=== PATIENT | female | born 1970 | race Caucasian/White ===

== ENCOUNTER 2016-08-02 03:35 | Inpatient (IN) | payer BC ==
[~2016-08-02] VITALS: Ht 165.1 cm; Wt 72.6 kg
[~2016-08-02 03:35] MED LIST: ACYC-113; ALBU18HF; DOXY100T PO; DULO30CA2 PO; FENT1PAT77 TD; FLUT1DIS; GABA300C10 PO; HCTZ 25 MG PO; HYDR-3144 PO; MONT10TA6; NAPR220C2; OXYC20TA42 PO; PRED50TA PO; SENN1TAB7 PO; TRAZ100T15
[2016-08-02] MEDS ORDERED: MAALOX/HYOSCYAMINE/LIDOCAINE 45 ML BOTTLE ONE (05:30)
[2016-08-02] MEDS ORDERED: MAALOX/HYOSCYAMINE/LIDOCAINE 45 ML BOTTLE PO ONE (05:30)
[2016-08-02 06:01] LABS: HEMOGLOBIN 11.8 g/dL (11.7-16.4)
[2016-08-02 06:14] LABS: DAU SCREEN DISCLAIMER
[2016-08-02 06:19] LABS: ASPARTATE AMINO TRANSFERASE 82 U/L (15-37); BLOOD UREA NITROGEN 27 mg/dL (7-18)
[2016-08-02] MEDS ORDERED: LORazepam 1MG TABLET ONE (06:22)
[2016-08-02] MEDS ORDERED: LORazepam 1MG TABLET PO ONE (06:30)
[2016-08-02] MEDS ORDERED: SODIUM CHLORIDE 0.9% 1,000ML IVBOLUS ONE (07:00)
[2016-08-02] MEDS ORDERED: SODIUM CHLORIDE FLUSH 10ML SYR IVF ONE (07:00)
[2016-08-02] MEDS ORDERED: LORazepam 2 MG/ML, 1ML IVPush ONE (07:00)
[2016-08-02] MEDS ORDERED: LORazepam 2 MG/ML, 1ML ONE (07:10)
[2016-08-02] MEDS ORDERED: ALBUTEROL/IPRATROPIUM 2.5MG/0.5MG, 3 ML NPPB ONE (08:00)
[2016-08-02] MEDS ORDERED: BISACODYL 10 MG SUPP PR PRN (09:30)
[2016-08-02] MEDS ORDERED: POLYETHYLENE GLYCOL 17 GM PACKET PO PRN (09:30)
[2016-08-02] MEDS ORDERED: ONDANSETRON ODT 4 MG PO PRN (09:30)
[2016-08-02] MEDS ORDERED: ONDANSETRON 2MG/ML, 2ML IVP PRN (09:30)
[2016-08-02] MEDS ORDERED: LABETALOL 5MG/ML, 20ML IV PRN (09:30)
[2016-08-02 10:20] VITALS: BP 128/81
[2016-08-02] MEDS: D5%-0.45NACL+KCL 20MEQ 1,000 ML IV SCH ×2 (10:50→19:21)
[2016-08-02] MEDS: ENOXAPARIN 40 MG/0.4 ML SQ SCH (10:50)
[2016-08-02] MEDS: DOXYCYCLINE 100MG TABLET PO SCH ×2 (10:51→20:49)
[2016-08-02] MEDS: predniSONE 50MG TABLET PO SCH (11:17)
[2016-08-02] MEDS ORDERED: ALBUTEROL SULFATE 2.5 MG/3 ML NPPB PRN (13:00)
[2016-08-02 13:10] VITALS: BP 124/57
[2016-08-02 19:34] VITALS: BP 117/77
[2016-08-02] MEDS: HYDROcodone/APAP 5/325 TABLET PO PRN (20:49)
[2016-08-03 01:35] VITALS: BP 116/78
[2016-08-03] MEDS: D5%-0.45NACL+KCL 20MEQ 1,000 ML IV SCH ×2 (03:24→11:40)
[2016-08-03] MEDS: HYDROcodone/APAP 5/325 TABLET PO PRN ×3 (05:42→18:34)
[2016-08-03 05:51] LABS: HEMOGLOBIN 11.2 g/dL (11.7-16.4)
[2016-08-03 06:05] LABS: ASPARTATE AMINO TRANSFERASE 56 U/L (15-37); BLOOD UREA NITROGEN 15 mg/dL (7-18)
[2016-08-03 07:09] VITALS: BP 128/82
[2016-08-03] MEDS: DOXYCYCLINE 100MG TABLET PO SCH ×2 (08:58→21:02)
[2016-08-03] MEDS: predniSONE 50MG TABLET PO SCH (08:58)
[2016-08-03] MEDS: SENNA/DOCUSATE TABLET PO SCH (08:58)
[2016-08-03] MEDS: ENOXAPARIN 40 MG/0.4 ML SQ SCH (08:59)
[2016-08-03] MEDS ORDERED: ALBUTEROL/IPRATROPIUM 2.5MG/0.5MG, 3 ML IPPB PRN (11:30)
[2016-08-03] MEDS: MONTELUKAST 10 MG TABLET PO SCH (11:41)
[2016-08-03] MEDS ORDERED: PRED10TA14 PO (11:55)
[2016-08-03] MEDS: HYDROCHLOROTHIAZIDE 12.5 MG CAPSULE PO SCH (12:31)
[2016-08-03 12:56] VITALS: BP 143/84
[2016-08-03] MEDS: GABAPENTIN 300 MG CAPSULE PO SCH ×2 (17:05→21:02)
[2016-08-03 19:52] VITALS: BP 137/88
[2016-08-04] MEDS: HYDROcodone/APAP 5/325 TABLET PO PRN ×3 (01:22→14:30)
[2016-08-04 04:51] VITALS: BP 147/86
[2016-08-04 04:55] LABS: ASPARTATE AMINO TRANSFERASE 38 U/L (15-37); BLOOD UREA NITROGEN 11 mg/dL (7-18)
[2016-08-04] MEDS: predniSONE 50MG TABLET PO SCH (08:41)
[2016-08-04] MEDS: MONTELUKAST 10 MG TABLET PO SCH (08:41)
[2016-08-04] MEDS: DOXYCYCLINE 100MG TABLET PO SCH (08:41)
[2016-08-04] MEDS: GABAPENTIN 300 MG CAPSULE PO SCH ×2 (08:42→17:26)
[2016-08-04] MEDS: ENOXAPARIN 40 MG/0.4 ML SQ SCH (08:42)
[2016-08-04] MEDS: HYDROCHLOROTHIAZIDE 12.5 MG CAPSULE PO SCH (08:42)
[2016-08-04] MEDS: SENNA/DOCUSATE TABLET PO SCH (08:44)
[2016-08-04 09:32] VITALS: BP 142/78
[2016-08-04] MEDS ORDERED: PRED50TA PO (16:23)
[2016-08-04 16:38] VITALS: BP 141/89
== END 2016-08-04 18:40 | disposition home or self-care (01) | DRG 682 ==
LOC: ED 05:18 → EDIP 08:41 → 4EST 10:01
PROVIDERS: ADMIT Internal Medicine; ATTEND Internal Medicine
PROC: 0T9B70Z Drainage of Bladder with Drainage Device, Via Natural or Artificial Opening (ICD-10-PCS; principal; 2016-08-02)
DX: N17.9 Acute kidney failure, unspecified (principal); J96.01 Acute respiratory failure with hypoxia; F23 Brief psychotic disorder; J45.901 Unspecified asthma with (acute) exacerbation; F32.9 Major depressive disorder, single episode, unspecified; K21.9 Gastro-esophageal reflux disease without esophagitis; I10 Essential (primary) hypertension; G62.9 Polyneuropathy, unspecified; E87.6 Hypokalemia; E78.5 Hyperlipidemia, unspecified; Z82.5 Family history of asthma and other chronic lower respiratory diseases; T38.0X5A Adverse effect of glucocorticoids and synthetic analogues, initial encounter; G89.29 Other chronic pain
CPT/HCPCS: 36415; 70450; 71020; 80053; 80307; 81001; 82140; 82607; 82746; 83690; 83735; 84439; 84443; 85025; 85610; 87086; 93005; 94640; 99285; J1650; J7613; J7620; J2060; J3480; J7512

== ENCOUNTER 2018-05-15 20:24 | Inpatient (IN) | payer OTHER ==
[~2018-05-15] VITALS: Ht 162.6 cm; Wt 61.1 kg
[~2018-05-15 20:24] MED LIST changes: -ALBU18HF; +ALBU18HF INH; -HYDR-3144 PO; +HYDR-3245 PO; -MONT10TA6; +MONT10TA6 PO; +PRED10TA14 PO; -SENN1TAB7 PO; +SENN1TAB8 PO; +TRAZ-137; -TRAZ100T15
--- NOTE | 2018-05-15 20:45 | NUR ---
assumed care of pt. pt here for epigastric pain x1 day. pt states that it is more comfortable to sit up. +tender to palpation. no urinary or bowel c/o. pt has has a total hysterectomy. pt reports vomiting [employer]. no vomiting at this time. non-productive cough and intermittent nausea. no family at bedsdie. PA at bedside for eval
[2018-05-15] MEDS ORDERED: BENA5TAB3 PO (20:58)
--- NOTE | 2018-05-15 21:05 | NUR ---
pt aware that urine sample needed. pt ambulated to BR
[2018-05-15] MEDS ORDERED: ONDANSETRON 2MG/ML, 2ML ONE (21:19)
[2018-05-15] MEDS ORDERED: HYDROmorphone 2 MG/ML, 1ML ONE ×2 (21:20→22:28)
[2018-05-15] MEDS: ONDANSETRON 2MG/ML, 2ML IVPush PRN (21:23)
[2018-05-15 21:29] LABS: BASOPHILS # (AUTO) 0.01 x10^3/uL (0-0.1); BASOPHILS % (AUTO) 0 % (0-1); EOSINOPHILS # (AUTO) 0.02 x10^3/uL (0-0.4); EOSINOPHILS % (AUTO) 0 % (1-7); LYMPHOCYTES # (AUTO) 0.92 x10^3/uL (1-3.4); LYMPHOCYTES % (AUTO) 6 % (22-44); MD NO; MEAN CORPUSCULAR HGB CONC 34.6 g/dL (32.4-35.8); MEAN CORPUSCULAR VOLUME 98.3 fL (80-100); MEAN PLATELET VOLUME 7.4 fL (7.4-10.4); MONOCYTES # (AUTO) 0.28 x10^3/uL (0.2-0.8); MONOCYTES % (AUTO) 2 % (2-9); NEUTROPHILS # (AUTO) 13.19 x10^3/uL (1.8-6.8); NEUTROPHILS % (AUTO) 92 % (42-75); PLATELET COUNT 267 x10^3/uL (130-400); RED BLOOD COUNT 5.03 x10^6/uL (3.82-5.3); RED CELL DISTRIBUTION WIDTH 12.9 % (9.6-15.2)
[2018-05-15] MEDS ORDERED: HYDROmorphone 1 MG/ML, 1ML IV ONE ×2 (21:30→22:30)
[2018-05-15] MEDS ORDERED: SODIUM CHLORIDE 0.9% 1,000ML IVBOLUS ONE ×2 (21:30→23:00)
[2018-05-15] MEDS ORDERED: DIPHENHYDRAMINE 50 MG/ML, 1ML IVPush ONE (21:30)
--- NOTE | 2018-05-15 21:30 | NUR ---
citlaly held at this time as pt became sleepy after dilaudid assessment and had a mild decrease of pusle ox. PA aware and agrees. pt advised prior to medication administration no to drive after dilaudid and pt verbalized understading.
--- NOTE | 2018-05-15 21:40 | NUR ---
pt in RAD
[2018-05-15 21:42] LABS: ALBUMIN 4.8 g/dL (3.4-5.0); ANION GAP 8 mmol/L (5-15); CALCIUM 9.5 mg/dL (8.5-10.1); CHLORIDE 98 mmol/L (98-107)
[2018-05-15 21:43] LABS: CULTURE INDICATED? YES; MICROSCOPIC INDICATED
[2018-05-15 21:46] LABS: ALANINE AMINOTRANSFERASE 237 U/L (12-78); ALKALINE PHOSPHATASE 96 U/L (45-117); BILIRUBIN,TOTAL 2.4 mg/dL (0.2-1.0); CREATININE 0.71 mg/dL (0.55-1.02); TOTAL PROTEIN 7.9 g/dL (6.4-8.2)
--- NOTE | 2018-05-15 22:11 | NUR ---
Dr Dodd has been to bedside for recheck. pt to be admitted
--- NOTE | 2018-05-15 22:19 | NUR ---
pt reports that pain was decreased after dilaudid until she had the US and now she is having more pain
[2018-05-15] MEDS ORDERED: CEFTRIAXONE PMX 1GM/50ML 50 ML ONE (22:28)
[2018-05-15] MEDS ORDERED: CEFTRIAXONE PMX 1GM/50ML 50 ML IV ONE (22:30)
--- NOTE | 2018-05-15 22:44 | NUR ---
pt medicated per order. oral swabs given for comfort
[2018-05-15] MEDS ORDERED: hydrALAzine 20 MG/ML, 1ML IVPush PRN (23:00)
[2018-05-15] MEDS ORDERED: ONDANSETRON 2MG/ML, 2ML IVPush PRN (23:00)
[2018-05-15] MEDS ORDERED: ACETAMINOPHEN 325 MG TABLET PO PRN (23:00)
--- NOTE | 2018-05-15 23:03 | NUR ---
report called to Marilee [facility]
--- NOTE | 2018-05-15 23:26 | NUR ---
pt reports some relief of pain after meds. PO ice chips given per MD COTTRELL. pt slightly hypoxic on RA after dilaudid, pt placed on 2L NC
--- NOTE | 2018-05-15 23:33 | NUR ---
pt to floor with transport. IV infusing on admit
[2018-05-15 23:42] VITALS: BP 145/97
[2018-05-16] MEDS: KETOROLAC 30 MG/1 ML IV PRN ×3 (00:06→21:58)
[2018-05-16] MEDS: ENOXAPARIN 40 MG/0.4 ML SQ SCH ×2 (00:06→21:58)
[2018-05-16] MEDS: LACTATED RINGERS 1,000 ML IV SCH ×3 (00:07→09:00)
[2018-05-16 01:02] VITALS: BP 152/78
[2018-05-16] MEDS: HYDROmorphone 2 MG/ML, 1ML IVPush PRN ×7 (01:55→23:03)
[2018-05-16 05:40] LABS: BASOPHILS # (AUTO) 0.01 x10^3/uL (0-0.1); BASOPHILS % (AUTO) 0 % (0-1); EOSINOPHILS # (AUTO) 0.02 x10^3/uL (0-0.4); EOSINOPHILS % (AUTO) 0 % (1-7); LYMPHOCYTES # (AUTO) 1.03 x10^3/uL (1-3.4); LYMPHOCYTES % (AUTO) 9 % (22-44); MD NO; MEAN CORPUSCULAR HEMOGLOBIN 34.4 pg (27.0-34.8); MEAN CORPUSCULAR HGB CONC 34.8 g/dL (32.4-35.8); MEAN CORPUSCULAR VOLUME 98.8 fL (80-100); MEAN PLATELET VOLUME 7.4 fL (7.4-10.4); MONOCYTES # (AUTO) 0.36 x10^3/uL (0.2-0.8); MONOCYTES % (AUTO) 3 % (2-9); NEUTROPHILS # (AUTO) 10.34 x10^3/uL (1.8-6.8); NEUTROPHILS % (AUTO) 88 % (42-75); PLATELET COUNT 202 x10^3/uL (130-400); RED BLOOD COUNT 4.42 x10^6/uL (3.82-5.3); RED CELL DISTRIBUTION WIDTH 13.4 % (9.6-15.2)
[2018-05-16 05:46] LABS: CHLORIDE 106 mmol/L (98-107)
[2018-05-16 06:00] LABS: ALANINE AMINOTRANSFERASE 161 U/L (12-78); ALBUMIN 3.8 g/dL (3.4-5.0); ALKALINE PHOSPHATASE 71 U/L (45-117); ANION GAP 9 mmol/L (5-15); BILIRUBIN,TOTAL 1.4 mg/dL (0.2-1.0); CALCIUM 8.6 mg/dL (8.5-10.1); CREATININE 0.52 mg/dL (0.55-1.02); TOTAL PROTEIN 6.5 g/dL (6.4-8.2); TRIGLYCERIDES 774 mg/dL (50-200)
[2018-05-16 06:40] VITALS: BP 134/89
[2018-05-16] MEDS: PANTOPRAZOLE 40 MG IV IVPush SCH (08:30)
[2018-05-16] MEDS: ONDANSETRON 2MG/ML, 2ML IVPush PRN (08:30)
[2018-05-16] MEDS: FENOFIBRATE 145 MG TABLET PO SCH (09:50)
[2018-05-16] MEDS: SODIUM CHLORIDE 0.9% 1,000 ML IV SCH ×3 (09:50→21:58)
[2018-05-16] MEDS ORDERED: ALBUTEROL SULFATE 2.5 MG/3 ML NPPB PRN (10:00)
[2018-05-16] MEDS: CEFTRIAXONE PMX 2GM/50ML 50 ML IV SCH ×2 (10:50→21:58)
[2018-05-16] MEDS ORDERED: ONDANSETRON 2MG/ML, 2ML IVPush PRN (14:30)
[2018-05-16 15:42] VITALS: BP 125/86
[2018-05-16 18:58] VITALS: BP 131/90
[2018-05-16] MEDS: MONTELUKAST 10 MG TABLET PO SCH (19:35)
[2018-05-17 00:48] VITALS: BP 146/91
[2018-05-17] MEDS: HYDROmorphone 2 MG/ML, 1ML IVPush PRN ×6 (02:23→21:34)
[2018-05-17] MEDS: SODIUM CHLORIDE 0.9% 1,000 ML IV SCH ×4 (04:19→22:46)
[2018-05-17] MEDS: KETOROLAC 30 MG/1 ML IV PRN ×3 (04:24→19:27)
[2018-05-17] MEDS: PANTOPRAZOLE 40 MG IV IVPush SCH (05:54)
[2018-05-17 06:11] LABS: CHLORIDE 103 mmol/L (98-107)
[2018-05-17 06:21] LABS: ALANINE AMINOTRANSFERASE 98 U/L (12-78); ALBUMIN 3.3 g/dL (3.4-5.0); ALKALINE PHOSPHATASE 61 U/L (45-117); ANION GAP 10 mmol/L (5-15); BILIRUBIN,TOTAL 0.8 mg/dL (0.2-1.0); CALCIUM 8.2 mg/dL (8.5-10.1); CHOL/HDL RATIO 4.3; CHOLESTEROL, TOTAL 141 mg/dL (140-239); CREATININE 0.35 mg/dL (0.55-1.02); HDL CHOL % 23 % (28-40); HDL CHOLESTEROL (DIRECT) 33 mg/dL (40-60); TOTAL PROTEIN 6.3 g/dL (6.4-8.2); TRIGLYCERIDES 433 mg/dL (50-200)
[2018-05-17 06:24] LABS: BASOPHILS # (AUTO) 0.01 x10^3/uL (0-0.1); BASOPHILS % (AUTO) 0 % (0-1); EOSINOPHILS # (AUTO) 0.15 x10^3/uL (0-0.4); EOSINOPHILS % (AUTO) 2 % (1-7); LYMPHOCYTES # (AUTO) 1.22 x10^3/uL (1-3.4); LYMPHOCYTES % (AUTO) 17 % (22-44); MD NO; MEAN CORPUSCULAR HGB CONC 34.2 g/dL (32.4-35.8); MEAN CORPUSCULAR VOLUME 99.5 fL (80-100); MEAN PLATELET VOLUME 7.4 fL (7.4-10.4); MONOCYTES # (AUTO) 0.27 x10^3/uL (0.2-0.8); MONOCYTES % (AUTO) 4 % (2-9); NEUTROPHILS # (AUTO) 5.73 x10^3/uL (1.8-6.8); NEUTROPHILS % (AUTO) 78 % (42-75); PLATELET COUNT 113 x10^3/uL (130-400); RED BLOOD COUNT 3.45 x10^6/uL (3.82-5.3); RED CELL DISTRIBUTION WIDTH 12.7 % (9.6-15.2)
[2018-05-17 06:38] VITALS: BP 138/88
[2018-05-17] MEDS: FENOFIBRATE 145 MG TABLET PO SCH (08:50)
[2018-05-17] MEDS ORDERED: POTASSIUM CHLORIDE 40 MEQ in SODIUM CHLORIDE 0.9% 500 ML IV ONE (09:00)
[2018-05-17] MEDS ORDERED: MAGNESIUM SULFATE PMX 2GM/50ML 50 ML IV ONE (10:00)
[2018-05-17 12:06] VITALS: BP 133/89
[2018-05-17 19:52] VITALS: BP 149/67
[2018-05-17] MEDS: ENOXAPARIN 40 MG/0.4 ML SQ SCH (21:34)
[2018-05-17] MEDS: MONTELUKAST 10 MG TABLET PO SCH (21:34)
[2018-05-17] MEDS: CEFTRIAXONE PMX 2GM/50ML 50 ML IV SCH (21:34)
[2018-05-18] MEDS: KETOROLAC 30 MG/1 ML IV PRN ×4 (01:39→20:44)
[2018-05-18] MEDS: HYDROmorphone 2 MG/ML, 1ML IVPush PRN ×5 (01:43→23:26)
[2018-05-18 04:00] VITALS: BP 133/82
[2018-05-18] MEDS: SODIUM CHLORIDE 0.9% 1,000 ML IV SCH (04:42)
[2018-05-18 05:55] LABS: BASOPHILS # (AUTO) 0.02 x10^3/uL (0-0.1); BASOPHILS % (AUTO) 0 % (0-1); EOSINOPHILS # (AUTO) 0.19 x10^3/uL (0-0.4); EOSINOPHILS % (AUTO) 2 % (1-7); LYMPHOCYTES # (AUTO) 0.76 x10^3/uL (1-3.4); LYMPHOCYTES % (AUTO) 8 % (22-44); MD NO; MEAN CORPUSCULAR HEMOGLOBIN 34.8 pg (27.0-34.8); MEAN CORPUSCULAR HGB CONC 35.4 g/dL (32.4-35.8); MEAN CORPUSCULAR VOLUME 98.3 fL (80-100); MEAN PLATELET VOLUME 7.5 fL (7.4-10.4); MONOCYTES # (AUTO) 0.29 x10^3/uL (0.2-0.8); MONOCYTES % (AUTO) 3 % (2-9); NEUTROPHILS # (AUTO) 8.41 x10^3/uL (1.8-6.8); NEUTROPHILS % (AUTO) 87 % (42-75); PLATELET COUNT 147 x10^3/uL (130-400); RED CELL DISTRIBUTION WIDTH 12.8 % (9.6-15.2)
[2018-05-18 06:10] LABS: ALBUMIN 3.8 g/dL (3.4-5.0); ANION GAP 14 mmol/L (5-15); CHLORIDE 101 mmol/L (98-107)
[2018-05-18 06:13] LABS: ALANINE AMINOTRANSFERASE 86 U/L (12-78); ALKALINE PHOSPHATASE 79 U/L (45-117); BILIRUBIN,TOTAL 0.9 mg/dL (0.2-1.0); CREATININE 0.35 mg/dL (0.55-1.02); TOTAL PROTEIN 7.8 g/dL (6.4-8.2); TRIGLYCERIDES 256 mg/dL (50-200)
[2018-05-18 06:56] VITALS: BP 142/82
[2018-05-18] MEDS ORDERED: POTASSIUM CHLORIDE 40 MEQ in SODIUM CHLORIDE 0.9% 500 ML IV ONE (07:00)
[2018-05-18] MEDS: PANTOPRAZOLE 40 MG IV IVPush SCH (08:03)
[2018-05-18] MEDS: FENOFIBRATE 145 MG TABLET PO SCH (08:03)
[2018-05-18] MEDS ORDERED: FLUCONAZOLE 100 MG TABLET PO ONE (10:00)
[2018-05-18 13:02] VITALS: BP 144/85
[2018-05-18] MEDS ORDERED: SODIUM CHLORIDE 0.9% 1,000 ML IV SCH (13:30)
[2018-05-18 13:32] VITALS: BP 123/79
[2018-05-18] MEDS: HYDROcodone/APAP 5/325 TABLET PO PRN ×2 (18:14→22:35)
[2018-05-18] MEDS: MONTELUKAST 10 MG TABLET PO SCH (20:44)
[2018-05-18] MEDS: ENOXAPARIN 40 MG/0.4 ML SQ SCH (20:45)
[2018-05-18 21:04] VITALS: BP 133/84
[2018-05-19 02:24] VITALS: BP 148/93
[2018-05-19] MEDS: HYDROcodone/APAP 5/325 TABLET PO PRN ×3 (02:46→14:17)
[2018-05-19] MEDS: KETOROLAC 30 MG/1 ML IV PRN ×3 (02:49→15:15)
[2018-05-19 05:11] LABS: CHLORIDE 102 mmol/L (98-107)
[2018-05-19 05:18] LABS: ALANINE AMINOTRANSFERASE 57 U/L (12-78); ALBUMIN 3.2 g/dL (3.4-5.0); ALKALINE PHOSPHATASE 70 U/L (45-117); ANION GAP 7 mmol/L (5-15); BILIRUBIN,TOTAL 0.7 mg/dL (0.2-1.0); CALCIUM 9.3 mg/dL (8.5-10.1); CREATININE 0.34 mg/dL (0.55-1.02); TOTAL PROTEIN 6.7 g/dL (6.4-8.2); TRIGLYCERIDES 151 mg/dL (50-200)
[2018-05-19] MEDS ORDERED: PANTOPROZOLE 40MG TABLET PO SCH (06:00)
[2018-05-19] MEDS: HYDROmorphone 2 MG/ML, 1ML IVPush PRN (07:35)
[2018-05-19 07:45] VITALS: BP 152/97
[2018-05-19] MEDS: FENOFIBRATE 145 MG TABLET PO SCH (08:31)
[2018-05-19] MEDS ORDERED: CEFDINIR 300 MG CAPSULE PO SCH (09:00)
[2018-05-19] MEDS ORDERED: SODIUM CHLORIDE 0.9% 1,000 ML IV SCH (09:30)
[2018-05-19] MEDS ORDERED: FENO145T30 PO (11:31)
[2018-05-19] MEDS ORDERED: PANT40TA5 PO (11:31)
[2018-05-19] MEDS ORDERED: CEFD300C37 PO (11:31)
[2018-05-19] MEDS ORDERED: KETO10TA PO (11:31)
[2018-05-19 14:24] VITALS: BP 136/84
== END 2018-05-19 15:50 | disposition home or self-care (01) | DRG 438 ==
LOC: ED 21:15 → EDIP 22:47 → 4NOR 23:35 → DCLOUNGE 05-19 15:37
PROVIDERS: ADMIT Hospitalist; ATTEND Hospitalist
DX: K85.30 Drug induced acute pancreatitis without necrosis or infection (principal); R65.11 Systemic inflammatory response syndrome (SIRS) of non-infectious origin with acute organ dysfunction; E87.1 Hypo-osmolality and hyponatremia; N39.0 Urinary tract infection, site not specified; T50.995A Adverse effect of other drugs, medicaments and biological substances, initial encounter; Y92.89 Other specified places as the place of occurrence of the external cause; E16.2 Hypoglycemia, unspecified; E78.1 Pure hyperglyceridemia; E78.5 Hyperlipidemia, unspecified; E86.9 Volume depletion, unspecified; E87.6 Hypokalemia; I10 Essential (primary) hypertension; J45.909 Unspecified asthma, uncomplicated; K76.0 Fatty (change of) liver, not elsewhere classified; Z90.49 Acquired absence of other specified parts of digestive tract; Z90.710 Acquired absence of both cervix and uterus
CPT/HCPCS: 36415; 84145; 99285; J7613; 74181; 76700; 80053; 80061; 81001; 82962; 83690; 83735; 84478; 85025; 87086; 94640; 96361; 96374; 96375; G0378; J0696; J1170; J1650; J1885; J2405; J3480; C9113; J1200; J3475; J7030; J7040; J7120

== ENCOUNTER 2018-06-29 13:00 | Inpatient (IN) | payer OTHER ==
[~2018-06-29] VITALS: Ht 162.6 cm; Wt 64.9 kg
[~2018-06-29 13:00] MED LIST changes: +BENA5TAB3 PO; +CEFD300C37 PO; +FENO145T30 PO; +KETO10TA PO; +PANT40TA5 PO
--- NOTE | 2018-06-29 13:49 | NUR ---
Pt resting on gurney. Pt states, "For 6 hours I have had this pain in my belly, it feels like a rock is there. It is constant. It hurts worse when I cough. I recently had pancreatitis and it feels like it is back." Pt vomits at small amount of yellow bile in emesis bag. Pt states, " I have had nausea and vomitting."
--- NOTE | 2018-06-29 13:52 | NUR ---
Pt denies recent antibiotic use, chest pain, shortness of breath, or trauma. Pt states, "I had the flu last week. I havn't had any alcohol in a few days."
[2018-06-29 13:57] LABS: BASOPHILS # (AUTO) 0.02 x10^3/uL (0-0.1); BASOPHILS % (AUTO) 0 % (0-1); EOSINOPHILS # (AUTO) 0.05 x10^3/uL (0-0.4); EOSINOPHILS % (AUTO) 1 % (1-7); LYMPHOCYTES # (AUTO) 0.68 x10^3/uL (1-3.4); LYMPHOCYTES % (AUTO) 8 % (22-44); MD NO; MEAN CORPUSCULAR HEMOGLOBIN 32.1 pg (27.0-34.8); MEAN CORPUSCULAR HGB CONC 33.5 g/dL (32.4-35.8); MEAN CORPUSCULAR VOLUME 95.7 fL (80-100); MEAN PLATELET VOLUME 6.2 fL (7.4-10.4); MONOCYTES % (AUTO) 3 % (2-9); NEUTROPHILS % (AUTO) 89 % (42-75); PLATELET COUNT 373 x10^3/uL (130-400); RED BLOOD COUNT 5.31 x10^6/uL (3.82-5.3); RED CELL DISTRIBUTION WIDTH 14.5 % (9.6-15.2)
[2018-06-29 14:11] LABS: ALBUMIN 4.3 g/dL (3.4-5.0); ANION GAP 10 mmol/L (5-15); CALCIUM 9.4 mg/dL (8.5-10.1); CHLORIDE 99 mmol/L (98-107)
[2018-06-29 14:15] LABS: ALANINE AMINOTRANSFERASE 252 U/L (12-78); ALKALINE PHOSPHATASE 119 U/L (45-117); BILIRUBIN,TOTAL 1.5 mg/dL (0.2-1.0); CREATININE 0.93 mg/dL (0.55-1.02); TOTAL PROTEIN 7.7 g/dL (6.4-8.2)
[2018-06-29] MEDS ORDERED: ONDANSETRON 2MG/ML, 2ML ONE (14:33)
[2018-06-29] MEDS ORDERED: MORPHINE SULFATE 4 MG/ML, 1ML ONE (14:33)
[2018-06-29] MEDS ORDERED: HYDROmorphone 1 MG/ML, 1ML ONE ×2 (14:34→16:26)
[2018-06-29] MEDS: HYDROmorphone 2 MG/ML, 1ML IVPush PRN ×2 (14:48→16:28)
[2018-06-29] MEDS ORDERED: SODIUM CHLORIDE 0.9% 1,000ML IVBOLUS ONE (15:00)
[2018-06-29] MEDS ORDERED: SODIUM CHLORIDE FLUSH 10ML SYR IVF ONE (15:00)
[2018-06-29] MEDS ORDERED: ONDANSETRON 2MG/ML, 2ML IVPush ONE (15:00)
[2018-06-29] MEDS ORDERED: DIPH25CA61 PO (15:10)
[2018-06-29] MEDS ORDERED: ACET-1600 PO (15:10)
--- NOTE | 2018-06-29 15:11 | NUR ---
Provided medication and PIV fluids per EMAR. Pt states pain has gone from a 10/10 to a 7/10. Waiting for pt to go to ultrasound.
--- NOTE | 2018-06-29 15:23 | NUR ---
Called ultrasound, aware pt is ready.
[2018-06-29] MEDS ORDERED: hydrALAzine 20 MG/ML, 1ML IVPush PRN (15:30)
[2018-06-29] MEDS ORDERED: morphine SULFATE 10 MG/ML, 1ML IVPush PRN (15:30)
[2018-06-29] MEDS ORDERED: DOCUSATE 100 MG CAPSULE PO PRN (15:30)
[2018-06-29] MEDS ORDERED: POLYETHYLENE GLYCOL 17 GM PACKET PO PRN (15:30)
[2018-06-29] MEDS ORDERED: BISACODYL 10 MG SUPP PR PRN (15:30)
[2018-06-29] MEDS ORDERED: LABETALOL 5MG/ML, 20ML IVPush PRN (15:30)
[2018-06-29] MEDS ORDERED: GABAPENTIN 300 MG CAPSULE PO PRN (15:30)
[2018-06-29] MEDS ORDERED: PROMETHAZINE 25 MG/ML, 1ML IM PRN (15:30)
--- NOTE | 2018-06-29 15:33 | NUR ---
Provided report to JAYASHREE Beltrán. All questions answered. Pt ready to transfer to floor from ED.
[2018-06-29] MEDS: GABAPENTIN 300 MG CAPSULE PO SCH ×3 (16:00→19:42)
[2018-06-29 16:10] LABS: FREE T4 (FREE THYROXINE) 0.89 ng/dL (0.76-1.46); THYROID STIMULATING HORMONE 1.88 mIU/L (0.358-3.740)
[2018-06-29 16:14] LABS: HEMOGLOBIN A1C 4.9 % (4.2-6.3)
[2018-06-29] MEDS ORDERED: HEPARIN 5,000 UNITS/ML, 1ML ONE (16:22)
[2018-06-29] MEDS ORDERED: GABAPENTIN 300 MG CAPSULE ONE (16:23)
[2018-06-29] MEDS: HEPARIN 5,000 UNITS/ML, 1ML SQ SCH ×2 (16:31→19:46)
[2018-06-29] MEDS: SODIUM CHLORIDE 0.9% 1,000 ML IV SCH ×2 (16:37→22:54)
--- NOTE | 2018-06-29 17:08 | NUR ---
Provided report to JAYASHREE Romero. All questions answered. Pt ready to transfer to floor.
--- NOTE | 2018-06-29 17:27 | NUR ---
Pt transfered to floor from ED and left with all personal belongings.
[2018-06-29] MEDS: ONDANSETRON 2MG/ML, 2ML IVPush PRN (17:43)
[2018-06-29] MEDS: OXYcodone IR 5MG TABLET PO PRN ×2 (17:43→18:22)
[2018-06-29 18:29] LABS: CULTURE INDICATED? YES; MICROSCOPIC INDICATED
[2018-06-29 18:55] VITALS: BP 164/113
[2018-06-29] MEDS: ONDANSETRON ODT 4 MG PO PRN (19:41)
[2018-06-29] MEDS: MONTELUKAST 10 MG TABLET PO SCH (19:42)
[2018-06-29 21:46] VITALS: BP 151/106
[2018-06-29] MEDS ORDERED: HYDROmorphone 2 MG/ML, 1ML ONE (22:44)
[2018-06-29] MEDS: HYDROmorphone 1 MG/ML, 1ML IV PRN (22:50)
[2018-06-30] MEDS: ONDANSETRON ODT 4 MG PO PRN ×2 (00:06→14:23)
[2018-06-30] MEDS ORDERED: HYDROmorphone 2 MG/ML, 1ML ONE ×4 (01:50→11:03)
[2018-06-30] MEDS: HYDROmorphone 1 MG/ML, 1ML IV PRN ×4 (02:00→11:01)
[2018-06-30 02:17] VITALS: BP 156/100
[2018-06-30] MEDS: ONDANSETRON 2MG/ML, 2ML IVPush PRN (05:01)
[2018-06-30 05:38] LABS: ALBUMIN 3.9 g/dL (3.4-5.0); ANION GAP 12 mmol/L (5-15); CALCIUM 8.6 mg/dL (8.5-10.1); CHLORIDE 108 mmol/L (98-107)
[2018-06-30 05:42] LABS: ALANINE AMINOTRANSFERASE 154 U/L (12-78); ALKALINE PHOSPHATASE 93 U/L (45-117); BILIRUBIN,TOTAL 1.4 mg/dL (0.2-1.0); CHOL/HDL RATIO 4.6; CHOLESTEROL, TOTAL 187 mg/dL (140-239); CREATININE 0.67 mg/dL (0.55-1.02); HDL CHOL % 22 % (28-40); HDL CHOLESTEROL (DIRECT) 41 mg/dL (40-60); LDL CHOLESTEROL,CALCULATED 68 mg/dL (54-169); LDL/HDL RATIO 1.7 (0.5-3.0); TOTAL PROTEIN 6.9 g/dL (6.4-8.2); TRIGLYCERIDES 388 mg/dL (50-200); VLDL CHOLESTEROL 78 mg/dL (0-25)
[2018-06-30 05:56] LABS: BASOPHILS # (AUTO) 0.03 x10^3/uL (0-0.1); BASOPHILS % (AUTO) 0 % (0-1); EOSINOPHILS % (AUTO) 0 % (1-7); LYMPHOCYTES # (AUTO) 0.36 x10^3/uL (1-3.4); LYMPHOCYTES % (AUTO) 3 % (22-44); MD NO; MEAN CORPUSCULAR HEMOGLOBIN 33.5 pg (27.0-34.8); MEAN CORPUSCULAR HGB CONC 35.1 g/dL (32.4-35.8); MEAN CORPUSCULAR VOLUME 95.5 fL (80-100); MEAN PLATELET VOLUME 6.6 fL (7.4-10.4); MONOCYTES # (AUTO) 0.47 x10^3/uL (0.2-0.8); MONOCYTES % (AUTO) 4 % (2-9); NEUTROPHILS # (AUTO) 10.73 x10^3/uL (1.8-6.8); NEUTROPHILS % (AUTO) 93 % (42-75); PLATELET COUNT 254 x10^3/uL (130-400); RED BLOOD COUNT 4.78 x10^6/uL (3.82-5.3); RED CELL DISTRIBUTION WIDTH 14.6 % (9.6-15.2)
[2018-06-30] MEDS: SODIUM CHLORIDE 0.9% 1,000 ML IV SCH ×2 (06:50→17:45)
[2018-06-30] MEDS: HEPARIN 5,000 UNITS/ML, 1ML SQ SCH ×3 (07:30→23:12)
[2018-06-30 08:00] VITALS: BP 145/98
[2018-06-30] MEDS: GABAPENTIN 300 MG CAPSULE PO SCH ×3 (08:01→20:31)
[2018-06-30] MEDS ORDERED: MAGNESIUM SULFATE PMX 2GM/50ML 50 ML IV ONE (09:30)
[2018-06-30] MEDS ORDERED: POTASSIUM CHLORIDE 40 MEQ in SODIUM CHLORIDE 0.9% 500 ML IV ONE (09:30)
[2018-06-30 13:39] VITALS: BP 163/118
[2018-06-30] MEDS: HYDROmorphone 2 MG/ML, 1ML IVPush PRN ×4 (14:23→23:30)
[2018-06-30 14:56] VITALS: BP 147/101
[2018-06-30] MEDS ORDERED: HYDROmorphone 1 MG/ML, 1ML IV PRN (16:30)
[2018-06-30 17:48] VITALS: BP 145/100
[2018-06-30 19:27] VITALS: BP 148/102
[2018-06-30] MEDS: MONTELUKAST 10 MG TABLET PO SCH (20:30)
[2018-07-01] MEDS: SODIUM CHLORIDE 0.9% 1,000 ML IV SCH ×2 (02:00→08:30)
[2018-07-01 02:26] VITALS: BP 132/74
[2018-07-01] MEDS: HYDROmorphone 2 MG/ML, 1ML IVPush PRN ×8 (02:34→23:50)
[2018-07-01 07:28] VITALS: BP 131/79
[2018-07-01] MEDS: HEPARIN 5,000 UNITS/ML, 1ML SQ SCH ×4 (07:30→22:58)
[2018-07-01] MEDS: GABAPENTIN 300 MG CAPSULE PO SCH ×3 (08:32→20:48)
[2018-07-01 13:29] VITALS: BP 110/61
[2018-07-01 19:36] VITALS: BP 112/75
[2018-07-01] MEDS: MONTELUKAST 10 MG TABLET PO SCH (20:47)
[2018-07-02 02:50] VITALS: BP 124/81
[2018-07-02] MEDS: HYDROmorphone 2 MG/ML, 1ML IVPush PRN ×4 (02:51→12:41)
[2018-07-02] MEDS: HEPARIN 5,000 UNITS/ML, 1ML SQ SCH ×3 (07:30→21:57)
[2018-07-02 07:32] VITALS: BP 141/92
[2018-07-02] MEDS: GABAPENTIN 300 MG CAPSULE PO SCH ×3 (09:10→20:40)
[2018-07-02 09:53] LABS: ALANINE AMINOTRANSFERASE 81 U/L (12-78); ALBUMIN 2.9 g/dL (3.4-5.0); CALCIUM 8.2 mg/dL (8.5-10.1); CHLORIDE 97 mmol/L (98-107)
[2018-07-02 09:56] LABS: ALKALINE PHOSPHATASE 103 U/L (45-117); BILIRUBIN,TOTAL 1.2 mg/dL (0.2-1.0); CREATININE 0.22 mg/dL (0.55-1.02); TOTAL PROTEIN 6.3 g/dL (6.4-8.2)
[2018-07-02 10:00] LABS: ANION GAP 11 mmol/L (5-15)
[2018-07-02] MEDS: LACTATED RINGERS 1,000 ML IV SCH ×2 (10:48→20:41)
[2018-07-02] MEDS ORDERED: POTASSIUM CHLORIDE 40 MEQ in SODIUM CHLORIDE 0.9% 500 ML IV ONE (13:00)
[2018-07-02] MEDS ORDERED: OXYcodone IR 5MG TABLET PO PRN (13:00)
[2018-07-02 13:15] LABS: MICROSCOPIC INDICATED
[2018-07-02 13:18] VITALS: BP 142/97
[2018-07-02 13:34] LABS: CULTURE INDICATED? NO
[2018-07-02] MEDS: OXYcodone IR 5MG TABLET PO PRN (16:38)
[2018-07-02] MEDS: POTASSIUM CHLORIDE 20 MEQ TAB.ER.PRT PO SCH (16:40)
[2018-07-02 19:56] VITALS: BP 161/108
[2018-07-02] MEDS: MONTELUKAST 10 MG TABLET PO SCH (20:40)
[2018-07-03] MEDS: OXYcodone IR 5MG TABLET PO PRN ×2 (00:41→09:13)
[2018-07-03 01:27] VITALS: BP 165/100
[2018-07-03 05:11] LABS: CHLORIDE 94 mmol/L (98-107)
[2018-07-03 05:13] LABS: BASOPHILS # (AUTO) 0.01 x10^3/uL (0-0.1); BASOPHILS % (AUTO) 0 % (0-1); EOSINOPHILS # (AUTO) 0.05 x10^3/uL (0-0.4); EOSINOPHILS % (AUTO) 1 % (1-7); LYMPHOCYTES # (AUTO) 0.64 x10^3/uL (1-3.4); LYMPHOCYTES % (AUTO) 6 % (22-44); MD NO; MEAN CORPUSCULAR HEMOGLOBIN 32.4 pg (27.0-34.8); MEAN CORPUSCULAR HGB CONC 33.7 g/dL (32.4-35.8); MEAN CORPUSCULAR VOLUME 96.1 fL (80-100); MEAN PLATELET VOLUME 6.8 fL (7.4-10.4); MONOCYTES # (AUTO) 0.56 x10^3/uL (0.2-0.8); MONOCYTES % (AUTO) 6 % (2-9); NEUTROPHILS # (AUTO) 8.94 x10^3/uL (1.8-6.8); NEUTROPHILS % (AUTO) 88 % (42-75); PLATELET COUNT 187 x10^3/uL (130-400); RED BLOOD COUNT 3.34 x10^6/uL (3.82-5.3); RED CELL DISTRIBUTION WIDTH 14.6 % (9.6-15.2)
[2018-07-03 05:21] LABS: ALANINE AMINOTRANSFERASE 69 U/L (12-78); ALBUMIN 3.2 g/dL (3.4-5.0); ALKALINE PHOSPHATASE 117 U/L (45-117); ANION GAP 8 mmol/L (5-15); BILIRUBIN,TOTAL 1.4 mg/dL (0.2-1.0); CALCIUM 8.8 mg/dL (8.5-10.1); CREATININE 0.27 mg/dL (0.55-1.02); TOTAL PROTEIN 6.8 g/dL (6.4-8.2)
[2018-07-03] MEDS: HEPARIN 5,000 UNITS/ML, 1ML SQ SCH ×2 (05:58→15:30)
[2018-07-03 07:52] VITALS: BP_SYST 153; BP_SYST 161; BP_DIAS 103; BP_DIAS 98
[2018-07-03] MEDS: GABAPENTIN 300 MG CAPSULE PO SCH (09:13)
[2018-07-03] MEDS: POTASSIUM CHLORIDE 20 MEQ TAB.ER.PRT PO SCH (09:14)
[2018-07-03 09:20] VITALS: BP 144/81
[2018-07-03] MEDS ORDERED: MAGNESIUM SULFATE PMX 2GM/50ML 50 ML IV ONE (10:00)
[2018-07-03] MEDS ORDERED: POTASSIUM CHLORIDE 40 MEQ in SODIUM CHLORIDE 0.9% 500 ML IV ONE (10:00)
[2018-07-03] MEDS ORDERED: MAGNESIUM CHLORIDE 64 MG TABLET.DR PO SCH (10:00)
[2018-07-03] MEDS: LACTATED RINGERS 1,000 ML IV SCH (11:25)
[2018-07-03] MEDS ORDERED: POTA20TA6 PO (13:21)
[2018-07-03] MEDS ORDERED: MAGN64TA7 PO (13:21)
[2018-07-03 13:24] VITALS: BP 157/100
[2018-07-03] MEDS ORDERED: POTASSIUM CHLORIDE 20 MEQ TAB.ER.PRT PO SCH (17:00)
== END 2018-07-03 16:27 | disposition home or self-care (01) | DRG 440 ==
LOC: ED 16:11 → EDIP 16:20 → 3NE 17:04 → DCLOUNGE 07-03 16:10
PROVIDERS: ADMIT Internal Medicine; ATTEND Internal Medicine
DX: K85.00 Idiopathic acute pancreatitis without necrosis or infection (principal); E78.1 Pure hyperglyceridemia; E86.0 Dehydration; I10 Essential (primary) hypertension; J45.909 Unspecified asthma, uncomplicated; K21.9 Gastro-esophageal reflux disease without esophagitis; K58.9 Irritable bowel syndrome, unspecified; G62.9 Polyneuropathy, unspecified; I95.9 Hypotension, unspecified; K76.0 Fatty (change of) liver, not elsewhere classified; K70.9 Alcoholic liver disease, unspecified; Z90.710 Acquired absence of both cervix and uterus; Z90.49 Acquired absence of other specified parts of digestive tract
CPT/HCPCS: 36415; 76700; 80053; 80061; 81001; 83036; 83690; 83735; 84439; 84443; 85025; 87086; 96374; 99285; G0378; J1170; J1644; J2405; J3480; Q0162; J3475; J7030; J7040; J7120

== ENCOUNTER 2019-04-26 18:06 | Emergency (ER) | payer OTHER ==
[~2019-04-26] VITALS: Ht 165.1 cm; Wt 54.7 kg
[~2019-04-26 18:06] MED LIST changes: +ACET-1600 PO; +DIPH25CA61 PO; +MAGN64TA7 PO; +POTA20TA6 PO; +SENN-177 PO; -SENN1TAB8 PO
[2019-04-26 18:10] VITALS: BP 100/59
--- NOTE | 2019-04-26 18:43 | NUR ---
PT STATES HER TDAP IS <5Y
--- NOTE | 2019-04-26 18:48 | NUR ---
REPORT RC'VD FROM [facility]. PT RETURNED FROM CT.
--- NOTE | 2019-04-26 18:57 | NUR ---
ER PA AT BS TO STAPLE PT'S HEAD LACERATION.
[2019-04-26] MEDS ORDERED: DIPH,PERTUSS(ACELL),TET VAC/PF 0.5 ML IM-VACC ONE (19:00)
--- NOTE | 2019-04-26 19:10 | NUR ---
D/C INSTRUCTIONS & F/U APPT RV'WD WITH PT AND . PT AMBULATED OUT OF ED WITH FAMILY WITHOUT DIFFICULTY.
== END 2019-04-26 19:18 | disposition home or self-care (01) ==
LOC: ED 18:20
DX: S01.01XA Laceration without foreign body of scalp, initial encounter (principal); I10 Essential (primary) hypertension; J45.909 Unspecified asthma, uncomplicated; Z90.710 Acquired absence of both cervix and uterus; W19.XXXA Unspecified fall, initial encounter; Y93.89 Activity, other specified; Y92.008 Other place in unspecified non-institutional (private) residence as the place of occurrence of the external cause; Y99.8 Other external cause status; F10.129 Alcohol abuse with intoxication, unspecified
CPT/HCPCS: 12031; 70450; 99284

== ENCOUNTER 2019-07-09 19:21 | Emergency (ER) | payer OTHER ==
[~2019-07-09 19:21] MED LIST changes: +FENO145T19 PO; -FENO145T30 PO; -TRAZ-137; +TRAZ-175
--- NOTE | 2019-07-09 19:30 | NUR ---
PT JUSTYN FROM HOME FOR INTOXICATION, PER EMS PT STATED PT DOES THIS A LOT TODAY SHE DRANK 1/4 OF VODKA.
--- NOTE | 2019-07-09 20:31 | NUR ---
AT BEDSIDE, PT ABLE TO ANSWER MORE QUESTIONS AT THIS TIME, NO ACUTE DISTRESS. VSS. SAFETY PRECAUTIONS IN PLACE.
[2019-07-09 20:32] VITALS: BP 139/76
--- NOTE | 2019-07-09 21:10 | NUR ---
ASSISTED PT TO RESTROOM. PT ABLE TO DRINK AND HOLD IN WATER.
== END 2019-07-09 21:50 | disposition home or self-care (01) ==
LOC: ED 19:59
DX: F10.120 Alcohol abuse with intoxication, uncomplicated (principal); J45.909 Unspecified asthma, uncomplicated; I10 Essential (primary) hypertension; Z90.710 Acquired absence of both cervix and uterus; Y90.0 Blood alcohol level of less than 20 mg/100 ml
CPT/HCPCS: 99283